=== PATIENT | female | born 1955 | race African-American/Black ===

== ENCOUNTER 2016-11-15 09:57 | Emergency (ER) | payer MEDICAID, OTHER ==
[~2016-11-15] VITALS: Ht 160 cm; Wt 122.0 kg
[~2016-11-15 09:57] MED LIST: AMLO-324 PO; ARIP10TA14 PO; DIPH25CA83 PO; PRAV20TA57 PO; SERT50TA12 PO
[2016-11-15] MEDS ORDERED: IBUPROFEN 600MG TABLET PO ONE (10:45)
[2016-11-15 10:59] VITALS: BP 138/70
[2016-11-15] MEDS ORDERED: BACITRACIN ZINC OINT UDPKT TOP ONE (11:45)
== END 2016-11-15 12:02 | disposition home or self-care (01) ==
LOC: ER 09:58
DX: S20.111A Abrasion of breast, right breast, initial encounter (principal); F32.9 Major depressive disorder, single episode, unspecified; N61.0 Mastitis without abscess; I10 Essential (primary) hypertension; X58.XXXA Exposure to other specified factors, initial encounter; Y93.89 Activity, other specified; Y92.89 Other specified places as the place of occurrence of the external cause; Y99.8 Other external cause status; Z90.49 Acquired absence of other specified parts of digestive tract
CPT/HCPCS: 99283